=== PATIENT | female | born 1995 | race African-American/Black ===

== ENCOUNTER 2017-11-26 16:51 | Emergency (ER) | payer OTHER, SELFPAY ==
[2017-11-26 16:53] VITALS: BP 106/65; PULSE 87; RESP 14; TEMP 36.6; O2SAT 99; BMI 23.3
--- NOTE | 2017-11-26 17:30 | ED.FEMALEGU ---
HPI - Female Genitourinary <Shira Flynn PA-C - Last Filed: 11/26/17 22:06> General Chief complaint: Urogenital-Female Stated complaint: PAIN DURING SEX Time Seen by Provider: 11/26/17 17:30 Source: patient Mode of arrival: ambulatory Limitations: no limitations History of Present Illness HPI Narrative: This 22-year-old female comes in today due to painful intercourse. She states that about 6 weeks ago, she had an elective . Waited 2 weeks to have sex as advised. She states that she wanted to change to non hormonal contraception and was prescribed diaphragm with spermicide. She states that the pain started after using the diaphragm. She felt like it came out awkwardly and was irritating, though no breakage or other specific problem. She states that since then, she has pain with any deep penetration (worse with her on bottom). She denies any STD concerns, new discharge, fever, urinary symptoms or other new complaints and has been otherwise well Related Data Home Medications Medication Instructions Recorded Confirmed vit-iron fum-folic ac 1 cap PO QDAY #0 03/16/17 [Mynatal] Previous Rx's Medication Instructions Recorded [ Rx 1] 1 tab PO QDAY #0 07/02/16 docusate sodium 250 mg PO QDAY #30 cap 07/02/16 ibuprofen 600 mg PO Q6HP PRN #60 tab 07/02/16 doxycycline hyclate 100 mg PO Q12H #14 cap 12/18/16 hydrocortisone acetate 25 mg DE BEDTIME 5 Days #5 each 11/26/17 Allergies Allergy/AdvReac Type Severity Reaction Status Date / Time Latex, Natural Rubber Allergy Unknown Unverified 07/13/17 12:42 [LATEX, NATURAL RUBBER] peach [PEACH] Allergy Unknown Unverified 07/13/17 12:42 shellfish derived Allergy Unknown Unverified 07/13/17 12:42 [SHELLFISH DERIVED] watermelon [WATERMELON] Allergy Unknown Unverified 07/13/17 12:42 Review of Systems <Shira Flynn PA-C - Last Filed: 11/26/17 22:06> Review of Systems All systems reviewed & are unremarkable except as noted in HPI and below PFSH <Shira Flynn PA-C - Last Filed: 11/26/17 22:06> Comment: No tobacco or illicit drug Exam <Shira Flynn PA-C - Last Filed: 11/26/17 22:06> Narrative Exam Narrative: GENERAL APPEARANCE: Patient sitting comfortably, in no distress. HEENT: PERRL, EOMI, no scleral icterus NECK: Supple LUNGS: Clear to auscultation bilaterally. HEART: Rate and rhythm regular, normal S1 and S2, no S3 or S4. ABDOMEN: Soft, nontender, nondistended, bowel sounds present x 4 quadrants, no masses palpable EXTREMITIES: No edema, no cyanosis DERMATOLOGIC: No jaundice or exanthem NEUROLOGIC: Alert and oriented with normal speech and coordination : Normal external genitalia. Vaginal mucosa mildly erythematous and tender. No lesions. Difficult to visualize the os but visualized portions of the cervix are normal. No CMT. There is moderate mucoid slightly yellow d/c. No adenexal tenderness Initial Vital Signs Initial Vital Signs: Vital Signs Temperature 98 F 11/26/17 16:53 Pulse Rate 87 11/26/17 16:53 Respiratory Rate 14 11/26/17 16:53 Blood Pressure 106/65 11/26/17 16:53 Pulse Oximetry 99 11/26/17 16:53 <Scar Martinez DO - Last Filed: 11/27/17 01:22> Initial Vital Signs Initial Vital Signs: Vital Signs Temperature 98 F 11/26/17 16:53 Pulse Rate 87 11/26/17 16:53 Respiratory Rate 14 11/26/17 16:53 Blood Pressure 106/65 11/26/17 16:53 Pulse Oximetry 99 11/26/17 16:53 Course <Shira Flynn PA-C - Last Filed: 11/26/17 22:06> Orders Ordered: ED Orders 11/26/17 18:10 Test Urine Stat Urinalysis Sreen (Dip Only) Stat Urine Chlamydia Gonorrhea PCR Stat 11/26/17 18:25 Body Fluid Culture Stat BRANDYN Prep Stat Wet Prep Tric BV [place] Stat Vital Signs - 8 hr 11/26/17 19:06 11/26/17 20:31 11/26/17 20:36 Temperature 98.0 F 98.9 F 98.9 F Pulse Rate 85 86 86 Respiratory Rate 18 15 15 Blood Pressure 107/69 Blood Pressure [Left Arm] 112/57 L 107/69 Pulse Oximetry 100 100 100 <Scar Martinez DO - Last Filed: 11/27/17 01:22> Orders Ordered: ED Orders 11/26/17 18:10 Test Urine Stat Urinalysis Sreen (Dip Only) Stat Urine Chlamydia Gonorrhea PCR Stat 11/26/17 18:25 Body Fluid Culture Stat BRANDYN Prep Stat Wet Prep Tric BV [place] Stat Vital Signs - 8 hr 11/26/17 19:06 11/26/17 20:31 11/26/17 20:36 Temperature 98.0 F 98.9 F 98.9 F Pulse Rate 85 86 86 Respiratory Rate 18 15 15 Blood Pressure 107/69 Blood Pressure [Left Arm] 112/57 L 107/69 Pulse Oximetry 100 100 100 MDM - Female Genitourinary <Shira Flynn PA-C - Last Filed: 11/26/17 22:06> Lab Data Lab Results 11/26/17 11/26/17 11/26/17 Range/Units 18:10 18:10 18:10 Urine Color Yellow Urine Appearance Clear Urine pH 7.0 (4.5-8.0) Ur Specific [place] 1.015 (1.000-1.035) Urine Protein Negative (Negative) Urine Glucose (UA) Negative (Normal) g/dL Urine Ketones Negative (NEGATIVE) Urine Occult Blood 1+ H (Negative) Urine Nitrate Negative (Negative) Urine Bilirubin Negative (NEGATIVE) Urine Urobilinogen 1.0 (0.2) E.U./dL Ur Leukocyte Esterase Negative (NEGATIVE) Urine Test Negative (Negative) Ur Chlamydia DNA (PCR) Not detected N gonorrhoeae DNA (PCR) Not detected <Scar Martinez DO - Last Filed: 11/27/17 01:22> Lab Data Lab Results 11/26/17 11/26/17 11/26/17 Range/Units 18:10 18:10 18:10 Urine Color Yellow Urine Appearance Clear Urine pH 7.0 (4.5-8.0) Ur Specific [place] 1.015 (1.000-1.035) Urine Protein Negative (Negative) Urine Glucose (UA) Negative (Normal) g/dL Urine Ketones Negative (NEGATIVE) Urine Occult Blood 1+ H (Negative) Urine Nitrate Negative (Negative) Urine Bilirubin Negative (NEGATIVE) Urine Urobilinogen 1.0 (0.2) E.U./dL Ur Leukocyte Esterase Negative (NEGATIVE) Urine Test Negative (Negative) Ur Chlamydia DNA (PCR) Not detected N gonorrhoeae DNA (PCR) Not detected Discharge Plan Departure Patient Disposition: Home Clinical Impression: Vaginitis Discharge Date/Time: 11/26/17 20:37 Interventions: ED Discharge Assessment Last Done: 11/26/17 20:36 Activity Restrictions/Additional Instructions: There was no specific problem found on your urine test today. No vaginal infections such as gonorrhea, Chlamydia, or yeast infection was found. It seems that you had more pain in your vaginal tissue then on the cervix. It is possible that you had a reaction to the spermicide, rather than just the diaphragm. Please stop the spermicide. I have sent in some steroid suppositories for you to try for a few days. Please try these once daily and schedule a follow-up with your PCM next week. You may need a referral to gynecology if not better. Prescriptions: New hydrocortisone acetate 25 mg suppository 25 mg DE BEDTIME 5 Days Qty: 5 RF: 0 No Action ibuprofen 600 MG tablet 600 mg PO Q6HP PRNQty: 60 RF: 0 docusate sodium 250 MG capsule 250 mg PO QDAY Qty: 30 RF: 0 [ Rx 1] 1 tab PO QDAY Qty: 0 RF: 0 doxycycline hyclate 100 MG capsule 100 mg PO Q12H Qty: 14 RF: 0 vit-iron fum-folic ac [Mynatal] 1 EACH capsule 1 cap PO QDAY Qty: 0 RF: 0 Referrals: [facility] [Provider Group] <Scar Martinez DO - Last Filed: 11/27/17 01:22> Cosign ED Attending Spike Attestation: I was immediately available in the department for consultation. Documentation has been reviewed. I agree with assessment and plan.
[2017-11-26 18:37] LABS: Appearance Urine UA CLEAR; Bilirubin Urine UA NEGATIVE (NEGATIVE); Color Urine UA YELLOW; Glucose Urine UA NEGATIVE (Normal); Ketones Urine UA NEGATIVE (NEGATIVE); Leukocyte Esterase Urine UA NEGATIVE (NEGATIVE); Nitrite Urine UA Negative (Negative); Occult Blood Urine UA 1+ (Negative); Protein Urine UA NEGATIVE (Negative); Specific Gravity Urine UA 1.015 (1.000-1.035)
[2017-11-26 18:39] LABS: Pregnancy Test Urine Negative (Negative)
[2017-11-26 19:06] VITALS: BP 112/57; PULSE 85; RESP 18; TEMP 36.7; O2SAT 100
[2017-11-26 20:04] LABS: Urine N gonorrhoeae NOT DETECTED
[2017-11-26 20:20] LABS: Urine Chlamydia NOT DETECTED
[2017-11-26 20:31] VITALS: BP 107/69; PULSE 86; RESP 15; TEMP 37.2; O2SAT 100
[2017-11-26 20:36] VITALS: BP 107/69; PULSE 86; RESP 15; TEMP 37.2; O2SAT 100
== END 2017-11-26 20:37 | disposition home or self-care (01) ==
PROVIDERS: Emergency Provider Internal Medicine
DX: N76.0 Acute vaginitis (principal)
CPT/HCPCS: 81003; 81025; 87070; 87075; 87205; 87210; 87220; 87491; 87591; 99282; 99283

== ENCOUNTER 2018-05-09 15:02 | Emergency (ER) | payer OTHER, SELFPAY ==
[2018-05-09 15:07] VITALS: BP 122/70; PULSE 95; RESP 16; TEMP 37.2; O2SAT 100; BMI 25.2
[2018-05-09 15:52] LABS: Pregnancy Test Urine Negative (Negative)
[2018-05-09 16:13] LABS: Appearance Urine UA CLOUDY; Bilirubin Urine UA NEGATIVE (NEGATIVE); Color Urine UA YELLOW; Glucose Urine UA NEGATIVE (Negative); Ketones Urine UA NEGATIVE (NEGATIVE); Leukocyte Esterase Urine UA TRACE (NEGATIVE); Nitrite Urine UA NEGATIVE (Negative); Occult Blood Urine UA 1+ (Negative); Protein Urine UA NEGATIVE (Negative); Specific Gravity Urine UA 1.025 (1.000-1.035); Urobilinogen Urine UA 0.2 E.U./dL (0.2); pH Urine UA 5.5 (4.5-8.0)
[2018-05-09 16:26] LABS: Amorphous Sediment Urine 1+; Bacteria Urine Many (>30); Mucus Urine 1+ (Negative); RBC Urine 1-5/HPF (0-5/HPF); Squamous Epithelial Cell Urine 5-10 /HPF; WBC Urine 5-10/HPF (0-5/HPF)
[2018-05-09 16:27] LABS: Culture Indicated Urine Specimen Cultured
[2018-05-09 17:41] LABS: Urine N gonorrhoeae NOT DETECTED
[2018-05-09 17:57] LABS: Urine Chlamydia NOT DETECTED
== END 2018-05-09 17:16 | disposition left against medical advice (07) ==
PROVIDERS: Emergency Provider Internal Medicine
DX: N89.8 Other specified noninflammatory disorders of vagina (principal)
CPT/HCPCS: 81001; 81003; 81015; 81025; 87086; 87491; 87591; 99281; 99282

== ENCOUNTER 2018-05-21 17:14 | Emergency (ER) | payer OTHER, SELFPAY ==
[2018-05-21 17:35] VITALS: BP 121/62; PULSE 81; RESP 16; TEMP 36.7; O2SAT 94; BMI 25.6
[2018-05-21 18:42] LABS: Bacteria Urine None Seen
[2018-05-21 18:59] LABS: Amorphous Sediment Urine 1+; Culture Indicated Urine Cult Not Indicated; Mucus Urine 2+ (Negative); RBC Urine 1-5/HPF (0-5/HPF); Squamous Epithelial Cell Urine 1-5 /HPF; WBC Urine 0-1/HPF (0-5/HPF)
[2018-05-21 20:39] LABS: Urine N gonorrhoeae NOT DETECTED
[2018-05-21 20:40] LABS: Urine Chlamydia NOT DETECTED
[2018-05-21 20:51] VITALS: BP 126/89; PULSE 82; RESP 13; O2SAT 100
[2018-05-21 21:01] LABS: Hematocrit 37.8 % (36-46); Hemoglobin 12.7 g/dL (12.0-16.0); Mean Corpuscular HGB Conc 33.5 % (30-36); Mean Corpuscular Hemoglobin 29.4 PG (26-34); Mean Corpuscular Volume 87.7 fL (80-100); Platelet Count 306 X10^3/uL (150-400); Red Blood Cell Count 4.32 X10^6/uL (4.0-5.2); Red Cell Distribution Width 13.7 % (11.6-14.8); White Blood Cell Count 4.4 X10^3/uL (4.5-11.0)
[2018-05-21 21:02] LABS: Add Manual Diff / Slide Review YES
[2018-05-21 21:10] LABS: Alanine Aminotransferase 20 IU/L (9-52); Albumin 4.6 g/dL (3.5-5.0); Albumin Globulin Ratio 1.3 (1.0-2.8); Alkaline Phosphatase 46 U/L (38-126); Aspartate Aminotransferase 19 IU/L (14-36); Bilirubin Total 0.3 mg/dL (0.2-1.3); Blood Urea Nitrogen 14 mg/dL (7-17); Calcium 9.2 mg/dL (8.4-10.2); Carbon Dioxide 25 mmol/L (22-32); Chloride 103 mmol/L (98-107); Estimated Glomerular Filt Rate > 60.0 mL/min (>60); Globulin 3.5 g/dL (1.7-4.1); Glucose 86 mg/dL (70-100); HEMOLYSIS < 15 (0-50); Sodium 138 mmol/L (137-145); Total Protein 8.1 g/dL (6.3-8.2)
--- NOTE | 2018-05-21 21:16 | ED.FEMALEGU ---
HPI - Female Genitourinary <ADRIAN Barriga - Last Filed: 05/21/18 22:14> General Chief complaint: Urogenital-Female Stated complaint: thinks she has a yeast infection Time Seen by Provider: 05/21/18 18:37 Source: patient Mode of arrival: ambulatory Limitations: no limitations History of Present Illness HPI Narrative: Patient is a 22-year-old female nonsmoker who presents with chief complaint vaginal discharge and pain during sex. She states that something is not write down there. she has a history of pelvic inflammatory disease. She complains of some discharge that is described as white, yellow, thick. She denies any recent antibiotics. She denies any fevers nausea vomiting or diarrhea. She is concerned she is having recurrence of pelvic inflammatory disease. She denies any dysuria urgency or frequency. Related Data Home Medications Medication Instructions Recorded Confirmed vit-iron fum-folic ac 1 cap PO QDAY #0 03/16/17 [Mynatal] Previous Rx's Medication Instructions Recorded [ Rx 1] 1 tab PO QDAY #0 07/02/16 docusate sodium 250 mg PO QDAY #30 cap 07/02/16 ibuprofen 600 mg PO Q6HP PRN #60 tab 07/02/16 doxycycline hyclate 100 mg PO Q12H #14 cap 12/18/16 doxycycline hyclate 100 mg PO BID #20 tab 05/21/18 Allergies Allergy/AdvReac Type Severity Reaction Status Date / Time Latex, Natural Rubber Allergy Unknown Verified 05/21/18 17:35 [LATEX, NATURAL RUBBER] peach [PEACH] Allergy Unknown Verified 05/21/18 17:35 shellfish derived Allergy Unknown Verified 05/21/18 17:35 [SHELLFISH DERIVED] watermelon [WATERMELON] Allergy Unknown Verified 05/21/18 17:35 Review of Systems <ADRIAN Barriga - Last Filed: 05/21/18 22:14> Review of Systems GENERAL: Denies chills, fatigue, malaise, fever, sweats. HEENT: Denies sinus pain, ear pain, sore throat, difficulty swallowing, dizziness. RESPIRATORY: Denies dyspnea, cough, wheezing, hemoptysis, sputum. CARDIOVASCULAR: Denies chest pain, palpitations, orthopnea, edema, GASTROINTESTINAL: Denies nausea, vomiting, abdominal pain, diarrhea, constipation, melena. : See HPI MUSCULOSKELETAL: denies weakness, joint pain, or bony pain SKIN: Denies rash, skin lesions, or other NEUROLOGIC: Denies weakness, headache, numbness, change in speech, confusion, seizures, incoordination. PSYCHIATRIC: No concerning psychosocial issues. 12 point review of systems is negative except for those stated above PFSH <ADRIAN Barriga - Last Filed: 05/21/18 22:14> Medical History Healthy female (Chronic) Status post elective (Resolved) Social History Smoking Status: Never smoker Social History Smoking Status: Never smoker Exam <ADRIAN Barriga - Last Filed: 05/21/18 22:14> Narrative Exam Narrative: GENERAL: This is a well-nourished, well-developed patient, No acute distress HEAD: Atraumatic. Normocephalic. No temporal or scalp tenderness. EYES: Pupils equal round and reactive. Extraocular motions intact. No scleral icterus. No injection or drainage. ENT: Nose without bleeding, purulent drainage or septal hematoma. Throat without erythema, tonsillar hypertrophy or exudate. Uvula midline. Airway patent. NECK: Trachea midline. No JVD or lymphadenopathy. Supple, nontender, no meningeal signs. CARDIOVASCULAR: Regular rate and rhythm RESPIRATORY: Clear to auscultation. Breath sounds equal bilaterally. No wheezes, rales, or rhonchi. no cough. No increased respiratory effort. GASTROINTESTINAL: Abdomen soft, non-tender, nondistended. No hepato-splenomegaly, or palpable masses. No guarding. EXTREMITIES: No clubbing, cyanosis, or edema. No joint tenderness, effusion, or edema noted. BACK: Nontender without deformity or crepitance. No flank tenderness. NEURO: AOx3. SKIN: No rash or erythema. no genital rashes or erythema noted. : Mucousy white discharge noted on vaginal exam. No obvious yeast discharge. No rashes, erythema or wounds noted. Cervical motion tenderness on exam. exam weaving inspector Marian RAMIREZ. Initial Vital Signs Initial Vital Signs: Vital Signs Temperature 98.0 F 05/21/18 17:35 Pulse Rate 81 05/21/18 17:35 Respiratory Rate 16 05/21/18 17:35 Blood Pressure 121/62 05/21/18 17:35 Pulse Oximetry 94 05/21/18 17:35 <Hai Vogel MD - Last Filed: 05/22/18 05:43> Initial Vital Signs Initial Vital Signs: Vital Signs Temperature 98.0 F 05/21/18 17:35 Pulse Rate 81 05/21/18 17:35 Respiratory Rate 16 05/21/18 17:35 Blood Pressure 121/62 05/21/18 17:35 Pulse Oximetry 94 05/21/18 17:35 Course <ADRIAN Barriga - Last Filed: 05/21/18 22:14> Orders Ordered: ED Orders 05/21/18 20:50 Complete Blood Count AUTO DIFF Stat Comprehensive Metabolic Panel Stat Discontinued Medications Ceftriaxone Sodium (Rocephin) 250 mg IM NOW ONE Stop: 05/21/18 21:16 Last Admin: 05/21/18 21:34 Dose: 250 mg Doxycycline Hyclate (Vibramycin) 100 mg PO NOW ONE Stop: 05/21/18 21:16 Last Admin: 05/21/18 21:26 Dose: 100 mg Vital Signs - 8 hr 05/21/18 21:50 Pulse Rate 90 Respiratory Rate 18 Blood Pressure 106/71 Pulse Oximetry 100 <Hai Vogel MD - Last Filed: 05/22/18 05:43> Orders Ordered: ED Orders 05/21/18 20:50 Complete Blood Count AUTO DIFF Stat Comprehensive Metabolic Panel Stat Discontinued Medications Ceftriaxone Sodium (Rocephin) 250 mg IM NOW ONE Stop: 05/21/18 21:16 Last Admin: 05/21/18 21:34 Dose: 250 mg Doxycycline Hyclate (Vibramycin) 100 mg PO NOW ONE Stop: 05/21/18 21:16 Last Admin: 05/21/18 21:26 Dose: 100 mg Vital Signs - 8 hr 05/21/18 21:50 Pulse Rate 90 Respiratory Rate 18 Blood Pressure 106/71 Pulse Oximetry 100 MDM - Female Genitourinary <ADRIAN Barriga - Last Filed: 05/21/18 22:14> Lab Data Result diagrams: 05/21/18 20:50 05/21/18 20:50 Lab Results 05/21/18 05/21/18 05/21/18 Range/Units 18:00 18:00 20:50 WBC 4.4 L (4.5-11.0) X10^3/uL RBC 4.32 (4.0-5.2) X10^6/uL Hgb 12.7 (12.0-16.0) g/dL Hct 37.8 (36-46) % MCV 87.7 (80-100) fL MCH 29.4 (26-34) PG MCHC 33.5 (30-36) % RDW 13.7 (11.6-14.8) % Plt Count 306 (150-400) X10^3/uL Neut % (Auto) Not Reportable Lymph % (Auto) Not Reportable [place] % (Auto) Not Reportable Eos % (Auto) Not Reportable Baso % (Auto) Not Reportable Lymph # (Auto) Not Reportable [place] # (Auto) Not Reportable Baso # (Auto) Not Reportable Total Counted 100 Seg Neutrophils % 25.0 L (38-70) % Lymphocytes % (Manual) 56.0 H (25-45) % Atypical Lymphs % 7.0 H ( - 0) % Monocytes % (Manual) 7.0 (2-11) % Eosinophils % (Manual) 5.0 H (2-4) % Neutrophils # (Manual) 1100 L (2301-2810) /uL RBC Morphology Normal morphology Sodium (137-145) mmol/L Potassium (3.4-5.1) mmol/L Chloride (98-107) mmol/L Carbon Dioxide (22-32) mmol/L BUN (7-17) mg/dL Creatinine (0.52-1.04) mg/dL Estimated GFR (>60) mL/min BUN/Creatinine Ratio (6-22) Glucose (70-100) mg/dL Calcium (8.4-10.2) mg/dL Total Bilirubin (0.2-1.3) mg/dL AST (14-36) IU/L ALT (9-52) IU/L Alkaline Phosphatase (38-126) U/L Total Protein (6.3-8.2) g/dL Albumin (3.5-5.0) g/dL Globulin (1.7-4.1) g/dL Albumin/Globulin Ratio (1.0-2.8) Urine RBC 1-5/hpf (0-5/HPF) Urine WBC 0-1/hpf (0-5/HPF) Ur Squamous Epith Cells 1-5 /hpf Amorphous Sediment 1+ Urine Bacteria None seen (None) Urine Mucus 2+ H (Negative) Ur Culture Indicated? Cult not indicated Ur Chlamydia DNA (PCR) Not detected N gonorrhoeae DNA (PCR) Not detected 05/21/18 Range/Units 20:50 WBC (4.5-11.0) X10^3/uL RBC (4.0-5.2) X10^6/uL Hgb (12.0-16.0) g/dL Hct (36-46) % MCV (80-100) fL MCH (26-34) PG MCHC (30-36) % RDW (11.6-14.8) % Plt Count (150-400) X10^3/uL Neut % (Auto) Lymph % (Auto) [place] % (Auto) Eos % (Auto) Baso % (Auto) Lymph # (Auto) [place] # (Auto) Baso # (Auto) Total Counted Seg Neutrophils % (38-70) % Lymphocytes % (Manual) (25-45) % Atypical Lymphs % ( - 0) % Monocytes % (Manual) (2-11) % Eosinophils % (Manual) (2-4) % Neutrophils # (Manual) (8920-9777) /uL RBC Morphology Sodium 138 (137-145) mmol/L Potassium 4.0 (3.4-5.1) mmol/L Chloride 103 (98-107) mmol/L Carbon Dioxide 25 (22-32) mmol/L BUN 14 (7-17) mg/dL Creatinine 0.70 (0.52-1.04) mg/dL Estimated GFR > 60.0 (>60) mL/min BUN/Creatinine Ratio 20.0 (6-22) Glucose 86 (70-100) mg/dL Calcium 9.2 (8.4-10.2) mg/dL Total Bilirubin 0.3 (0.2-1.3) mg/dL AST 19 (14-36) IU/L ALT 20 (9-52) IU/L Alkaline Phosphatase 46 (38-126) U/L Total Protein 8.1 (6.3-8.2) g/dL Albumin 4.6 (3.5-5.0) g/dL Globulin 3.5 (1.7-4.1) g/dL Albumin/Globulin Ratio 1.3 (1.0-2.8) Urine RBC (0-5/HPF) Urine WBC (0-5/HPF) Ur Squamous Epith Cells Amorphous Sediment Urine Bacteria (None) Urine Mucus (Negative) Ur Culture Indicated? Ur Chlamydia DNA (PCR) N gonorrhoeae DNA (PCR) Point of Care Testing Test Results Negative Urine Dip Bedside Urine Glucose Negative Bedside Urine Bilirubin + 1 Bedside Urine Ketone - Negative Urine Specific [place] 1.025 Bedside Urine Occult Blood +/- Bedside Urine pH 6.5 Bedside Urine Protein +/- 15 Bedside Urine Urobilinogen +/- 1mg Bedside Urine Nitrite - Negative Bedside Urine Leukocytes - Negative Esterase MDM Narrative Medical decision making narrative: The patient is a 22-year-old female with history of PID who presents with a chief complaint of pain during sex and vaginal discharge. lab results were reviewed. She does not have an elevated white blood cell count does not have a fever. However she has cervical motion tenderness on exam, so I will treat her for pelvic inflammatory disease. I discussed at length follow up with primary care provider, monitoring for fever. she was treated with IM ceftriaxone and doxycycline as per up-to-date recommendations. Patient Had no questions or concerns upon discharge. <Hai Vogel MD - Last Filed: 05/22/18 05:43> Lab Data Lab Results 05/21/18 05/21/18 05/21/18 Range/Units 18:00 18:00 20:50 WBC 4.4 L (4.5-11.0) X10^3/uL RBC 4.32 (4.0-5.2) X10^6/uL Hgb 12.7 (12.0-16.0) g/dL Hct 37.8 (36-46) % MCV 87.7 (80-100) fL MCH 29.4 (26-34) PG MCHC 33.5 (30-36) % RDW 13.7 (11.6-14.8) % Plt Count 306 (150-400) X10^3/uL Neut % (Auto) Not Reportable Lymph % (Auto) Not Reportable [place] % (Auto) Not Reportable Eos % (Auto) Not Reportable Baso % (Auto) Not Reportable Lymph # (Auto) Not Reportable [place] # (Auto) Not Reportable Baso # (Auto) Not Reportable Total Counted 100 Seg Neutrophils % 25.0 L (38-70) % Lymphocytes % (Manual) 56.0 H (25-45) % Atypical Lymphs % 7.0 H ( - 0) % Monocytes % (Manual) 7.0 (2-11) % Eosinophils % (Manual) 5.0 H (2-4) % Neutrophils # (Manual) 1100 L (1508-0621) /uL RBC Morphology Normal morphology Sodium (137-145) mmol/L Potassium (3.4-5.1) mmol/L Chloride (98-107) mmol/L Carbon Dioxide (22-32) mmol/L BUN (7-17) mg/dL Creatinine (0.52-1.04) mg/dL Estimated GFR (>60) mL/min BUN/Creatinine Ratio (6-22) Glucose (70-100) mg/dL Calcium (8.4-10.2) mg/dL Total Bilirubin (0.2-1.3) mg/dL AST (14-36) IU/L ALT (9-52) IU/L Alkaline Phosphatase (38-126) U/L Total Protein (6.3-8.2) g/dL Albumin (3.5-5.0) g/dL Globulin (1.7-4.1) g/dL Albumin/Globulin Ratio (1.0-2.8) Urine RBC 1-5/hpf (0-5/HPF) Urine WBC 0-1/hpf (0-5/HPF) Ur Squamous Epith Cells 1-5 /hpf Amorphous Sediment 1+ Urine Bacteria None seen (None) Urine Mucus 2+ H (Negative) Ur Culture Indicated? Cult not indicated Ur Chlamydia DNA (PCR) Not detected N gonorrhoeae DNA (PCR) Not detected 05/21/18 Range/Units 20:50 WBC (4.5-11.0) X10^3/uL RBC (4.0-5.2) X10^6/uL Hgb (12.0-16.0) g/dL Hct (36-46) % MCV (80-100) fL MCH (26-34) PG MCHC (30-36) % RDW (11.6-14.8) % Plt Count (150-400) X10^3/uL Neut % (Auto) Lymph % (Auto) [place] % (Auto) Eos % (Auto) Baso % (Auto) Lymph # (Auto) [place] # (Auto) Baso # (Auto) Total Counted Seg Neutrophils % (38-70) % Lymphocytes % (Manual) (25-45) % Atypical Lymphs % ( - 0) % Monocytes % (Manual) (2-11) % Eosinophils % (Manual) (2-4) % Neutrophils # (Manual) (2598-6583) /uL RBC Morphology Sodium 138 (137-145) mmol/L Potassium 4.0 (3.4-5.1) mmol/L Chloride 103 (98-107) mmol/L Carbon Dioxide 25 (22-32) mmol/L BUN 14 (7-17) mg/dL Creatinine 0.70 (0.52-1.04) mg/dL Estimated GFR > 60.0 (>60) mL/min BUN/Creatinine Ratio 20.0 (6-22) Glucose 86 (70-100) mg/dL Calcium 9.2 (8.4-10.2) mg/dL Total Bilirubin 0.3 (0.2-1.3) mg/dL AST 19 (14-36) IU/L ALT 20 (9-52) IU/L Alkaline Phosphatase 46 (38-126) U/L Total Protein 8.1 (6.3-8.2) g/dL Albumin 4.6 (3.5-5.0) g/dL Globulin 3.5 (1.7-4.1) g/dL Albumin/Globulin Ratio 1.3 (1.0-2.8) Urine RBC (0-5/HPF) Urine WBC (0-5/HPF) Ur Squamous Epith Cells Amorphous Sediment Urine Bacteria (None) Urine Mucus (Negative) Ur Culture Indicated? Ur Chlamydia DNA (PCR) N gonorrhoeae DNA (PCR) Point of Care Testing Test Results Negative Urine Dip Bedside Urine Glucose Negative Bedside Urine Bilirubin + 1 Bedside Urine Ketone - Negative Urine Specific [place] 1.025 Bedside Urine Occult Blood +/- Bedside Urine pH 6.5 Bedside Urine Protein +/- 15 Bedside Urine Urobilinogen +/- 1mg Bedside Urine Nitrite - Negative Bedside Urine Leukocytes - Negative Esterase Discharge Plan Departure Patient Disposition: Home Clinical Impression: Female pelvic inflammatory disease Discharge Date/Time: 05/21/18 21:50 Interventions: ED Discharge Assessment Last Done: 05/21/18 21:50 Instructions: DI for Pelvic Inflammatory Disease Activity Restrictions/Additional Instructions: We are treating you for pelvic inflammatory disease given her exam. Please follow up with primary care provider as we discussed. Monitor for fever inability keep down fluids or any acute concerns. Came back to the emergency department if necessary. Please follow up with your PCP in a few days. Prescriptions: New doxycycline hyclate 100 mg tablet 100 mg PO BID Qty: 20 RF: 0 No Action ibuprofen 600 MG tablet 600 mg PO Q6HP PRNQty: 60 RF: 0 docusate sodium 250 MG capsule 250 mg PO QDAY Qty: 30 RF: 0 [ Rx 1] 1 tab PO QDAY Qty: 0 RF: 0 doxycycline hyclate 100 MG capsule 100 mg PO Q12H Qty: 14 RF: 0 vit-iron fum-folic ac [Mynatal] 1 EACH capsule 1 cap PO QDAY Qty: 0 RF: 0 Referrals: [facility] [Provider Group] <Hai Vogel MD - Last Filed: 05/22/18 05:43> Cosign ED Attending Guillermoature Attestation: I was working in the ER at the time of this patient's evaluation. I was available for verbal consult or to see the patient directly if needed. I agree with the patient's assessment and treatment plan.
[2018-05-21 21:19] LABS: Neutrophils Absolute Manual 1100 /uL (3000-5900); Total Cells Counted 100
[2018-05-21 21:20] LABS: RBC Morphology Normal Morphology
[2018-05-21] MEDS: DOXYCYCLINE HYCLATE 100 MG TABLET PO (21:26)
[2018-05-21] MEDS: cefTRIAXone 500 MG VIAL 250 MG IM (21:34)
[2018-05-21 21:50] VITALS: BP 106/71; PULSE 90; RESP 18; O2SAT 100
== END 2018-05-21 21:50 | disposition home or self-care (01) ==
PROVIDERS: Emergency Medicine; Emergency Provider Nurse Practitioner Family
DX: N73.9 Female pelvic inflammatory disease, unspecified (principal)
CPT/HCPCS: 36415; 80053; 81003; 81015; 81025; 85025; 87210; 87220; 87491; 87591; 96372; 99283; J0696